=== PATIENT | female | born 1960 | race Two or more races ===

== ENCOUNTER → 2019-09-21 | Outpatient (REF) | payer OTHER, SELFPAY ==
[2019-09-21 11:59] LABS: BASO % 0.7 % (0.0-1.0); EOS % 0.7 % (0.0-3.0); HEMATOCRIT 47.5 % (36.0-47.0); HEMOGLOBIN 15.5 g/dl (12.0-15.5); LYMPH # 3.1 10^3/uL (1.5-5.0); LYMPH % 53.3 % (24.0-44.0); MEAN CORPUSCULAR HGB CONC 32.6 g/dl (32.0-36.5); MEAN CORPUSCULAR VOLUME 91.9 fl (80.0-96.0); MONO # 0.4 10^3/uL (0.0-0.8); MONO % 6.3 % (0.0-5.0); NEUTROPHILS # 2.2 10^3/uL (1.5-8.5); NEUTROPHILS % 38.8 % (36.0-66.0); PLATELET COUNT, AUTOMATED 214 10^3/uL (150-450); RED BLOOD COUNT 5.17 10^6/uL (4.00-5.40); WHITE BLOOD COUNT 5.7 10^3/uL (4.0-10.0)
[2019-09-21 12:55] LABS: ALBUMIN 3.9 GM/DL (3.2-5.2); ALT/SGPT 24 U/L (12-78); BILIRUBIN,TOTAL 2.9 MG/DL (0.2-1.0); BLOOD UREA NITROGEN 18 MG/DL (7-18); CALCIUM LEVEL 9.3 MG/DL (8.5-10.1); CARBON DIOXIDE LEVEL 30 MEQ/L (21-32); CHLORIDE LEVEL 102 MEQ/L (98-107); CHOLESTEROL LEVEL 247 MG/DL (<200); CHOLESTEROL RISK RATIO 4.333 (<5); CREATININE FOR GFR 0.79 MG/DL (0.55-1.30); GLOMERULAR FILTRATION RATE > 60.0 (>51); GLUCOSE, FASTING 95 MG/DL (70-100); HDL CHOLESTEROL 57 MG/DL (>40); LDL CHOLESTEROL 153 MG/DL (<100); NON-HDL-C 190 MG/DL; POTASSIUM SERUM 4.1 MEQ/L (3.5-5.1); SODIUM LEVEL 136 MEQ/L (136-145); TOTAL PROTEIN 8.2 GM/DL (6.4-8.2); TRIGLYCERIDES LEVEL 186 MG/DL (<150)
== END ==
LOC: M PLALAB 08:12
PROVIDERS: ATTEND Family Medicine
DX: I10 Essential (primary) hypertension (principal); Z21 Asymptomatic human immunodeficiency virus [HIV] infection status; Z13.220 Encounter for screening for lipoid disorders

== ENCOUNTER → 2019-09-27 | Outpatient (REF) | payer OTHER, SELFPAY ==
[~2019-09-27] MED LIST: ASPI81TA26 PO; ATEN100T7 PO; SYMT1TAB PO
[2019-09-27 14:03] LABS: APPEARANCE, URINE CLEAR (CLEAR); BACTERIA, URINE AUTO 1+ (NEGATIVE); BILIRUBIN, URINE AUTO NEGATIVE (NEGATIVE); BLOOD, URINE BLOOD NEGATIVE (NEGATIVE); COLOR, URINE YELLOW (YELLOW); GLUCOSE, URINE (UA) AUTO NEGATIVE (NEGATIVE); KETONE, URINE AUTO NEGATIVE (NEGATIVE); LEUKOCYTE ESTERASE, URINE AUTO NEGATIVE (NEGATIVE); MUCUS, URINE SMALL (NEGATIVE); NITRITE, URINE AUTO NEGATIVE (NEGATIVE); PROTEIN, URINE AUTO NEGATIVE (NEGATIVE); RBC, URINE AUTO 1 /HPF (0-3); SPECIFIC GRAVITY URINE AUTO 1.016 (1.002-1.035); SQUAMOUS EPITHELIAL CELL UR AU 0 /HPF (0-6); UROBILINOGEN, URINE AUTO 0.2 mg/dL (0.0-2.0); WBC, URINE AUTO 1 /HPF (0-3)
[2019-09-27 14:23] LABS: ALBUMIN 4.1 GM/DL (3.2-5.2); ALT/SGPT 24 U/L (12-78); BILIRUBIN,TOTAL 5.3 MG/DL (0.2-1.0); BLOOD UREA NITROGEN 19 MG/DL (7-18); CALCIUM LEVEL 9.9 MG/DL (8.5-10.1); CARBON DIOXIDE LEVEL 28 MEQ/L (21-32); CHLORIDE LEVEL 100 MEQ/L (98-107); CREATININE FOR GFR 0.94 MG/DL (0.55-1.30); GLOMERULAR FILTRATION RATE > 60.0 (>51); GLUCOSE, FASTING 106 MG/DL (70-100); HEPATITIS B SURFACE ANTIGEN NEGATIVE (NEGATIVE); HEPATITIS C VIRUS ABY INDEX 0.1 INDEX (<0.8); POTASSIUM SERUM 3.5 MEQ/L (3.5-5.1); SODIUM LEVEL 136 MEQ/L (136-145); TOTAL PROTEIN 8.5 GM/DL (6.4-8.2)
[2019-09-27 14:29] LABS: BILIRUBIN,DIRECT 0.4 MG/DL (0.0-0.2); BILIRUBIN,TOTAL 5.3 MG/DL (0.2-1.0)
[2019-09-27 15:18] LABS: CHLAMYDIA DNA AMPLIFICATION NEGATIVE (NEGATIVE); GC DNA AMPLIFICATION NEGATIVE (NEGATIVE)
[2019-10-04 12:19] LABS: % CD8 Pos Lymph 43.6 % (12.0-35.5); ABS Lymphs 2.4 x10E3/uL (0.7-3.1); ABS Monocytes 0.2 x10E3/uL (0.1-0.9); ABS Neutophils 1.9 x10E3/uL (1.4-7.0); Abs CD4 Helper 960 /uL (359-1519); Abs CD8 Suppres 1046 /uL (109-897); CD4/CD8 Ratio 0.92 (0.92-3.72); Eosinophils 1 % (Not Estab.); G6PD2 5.02 x10E6/uL (3.77-5.28); HCT 43.5 % (34.0-46.6); HEPATITIS A IgG TOTAL Positive (Negative); HEPATITIS B CORE ANTIBODY IGG Negative (Negative); HGB 14.8 g/dL (11.1-15.9); HIV-1 RNA PCR QUANT 2 LC550285 <20 copies/mL (.); HLA B5701-1 Negative (.); Immature Grans 0 % (Not Estab.); Lymphocytes 52 % (Not Estab.); MCH 29.5 pg (26.6-33.0); MCV 87 fL (79-97); Monocytes 5 % (Not Estab.); Neutrophils 42 % (Not Estab.); Platelets 222 x10E3/uL (150-450); RDW 13.1 % (11.7-15.4); WBC 4.6 x10E3/uL (3.4-10.8)
== END ==
LOC: M PLALAB 10:29
PROVIDERS: ATTEND Family Medicine
DX: R17 Unspecified jaundice (principal); Z21 Asymptomatic human immunodeficiency virus [HIV] infection status

== ENCOUNTER → 2019-11-19 | Outpatient (CLI) | payer OTHER ==
[2019-11-19 15:16] LABS: ALBUMIN 3.8 GM/DL (3.2-5.2); ALT/SGPT 27 U/L (12-78); BILIRUBIN,TOTAL 0.4 MG/DL (0.2-1.0); BLOOD UREA NITROGEN 17 MG/DL (7-18); CALCIUM LEVEL 9.3 MG/DL (8.5-10.1); CARBON DIOXIDE LEVEL 32 MEQ/L (21-32); CHLORIDE LEVEL 105 MEQ/L (98-107); CREATININE FOR GFR 0.72 MG/DL (0.55-1.30); GLOMERULAR FILTRATION RATE > 60.0 (>51); GLUCOSE, FASTING 47 MG/DL (70-100); POTASSIUM SERUM 4.7 MEQ/L (3.5-5.1); SODIUM LEVEL 141 MEQ/L (136-145)
== END ==
LOC: M PLALAB 12:00
PROVIDERS: ATTEND Family Medicine
DX: E80.7 Disorder of bilirubin metabolism, unspecified (principal)

== ENCOUNTER → 2019-12-25 | Outpatient (CLI) | payer OTHER, SELFPAY | LOC: M LABSMTC 08:42 | PROVIDERS: ATTEND Anesthesiology | DX: Z01.812 Encounter for preprocedural laboratory examination (principal); Z20.828 Contact with and (suspected) exposure to other viral communicable diseases | CPT/HCPCS: C9803; U0003 ==

== ENCOUNTER 2019-12-30 08:13 | Day surgery (SDC) | payer OTHER ==
[~2019-12-30] VITALS: Ht 165.1 cm; Wt 62.6 kg
[~2019-12-30 08:13] MED LIST changes: +NS 1,000 ML IV ONE
[2019-12-30] MEDS ORDERED: propofoL 500 MG/50 ML VIAL As Ordered ONE (09:58)
[2019-12-30] MEDS ORDERED: LIDOCAINE 2% 100MG/5ML SDV (FOR ANES.) As Ordered ONE (09:58)
--- NOTE | 2019-12-30 10:39 | ROOR ---
Patient Name: Veronica De Oliveira Procedure Date: 12/30/2019 9:54 AM Date of : 1960 Age: 59 Room: [facility] Gender: Female Note Status: Finalized Procedure: Colonoscopy Indications: Hematochezia Providers: Ashutosh Monroy MD Referring MD: Anna Kurtz MD Requesting Provider: Medicines: Monitored Anesthesia Care Complications: No immediate complications. Procedure: Pre-Anesthesia Assessment: - Prior to the procedure, a History and Physical was performed, and patient medications and allergies were reviewed. The patient is competent. The risks and benefits of the procedure and the sedation options and risks were discussed with the patient. All questions were answered and informed consent was obtained. Patient identification and proposed procedure were verified by the physician, the nurse and the anesthesiologist in the procedure room. Mental Status Examination: alert and oriented. Airway Examination: normal oropharyngeal airway and neck mobility. Respiratory Examination: clear to auscultation. CV Examination: normal. Prophylactic Antibiotics: The patient does not require prophylactic antibiotics. Prior Anticoagulants: The patient has taken no previous anticoagulant or antiplatelet agents. ASA Grade Assessment: II - A patient with mild systemic disease. After reviewing the risks and benefits, the patient was deemed in satisfactory condition to undergo the procedure. The anesthesia plan was to use monitored anesthesia care (MAC). Immediately prior to administration of medications, the patient was re-assessed for adequacy to receive sedatives. The heart rate, respiratory rate, oxygen saturations, blood pressure, adequacy of pulmonary ventilation, and response to care were monitored throughout the procedure. The physical status of the patient was re-assessed after the procedure. The Colonoscope was introduced through the anus and advanced to the terminal ileum, with identification of the appendiceal orifice and IC valve. The colonoscopy was performed without difficulty. The patient tolerated the procedure well. The quality of the bowel preparation was good. The terminal ileum, ileocecal valve, appendiceal orifice, and rectum were photographed. Scope insertion time was 3 minutes. Scope withdrawal time was 10 minutes. The total duration of the procedure was 14 minutes. Findings: The perianal and digital rectal examinations were normal. The terminal ileum appeared normal. Two sessile polyps were found in the descending colon and ascending colon. The polyps were 6 to 8 mm in size. These polyps were removed with a cold snare. Resection and retrieval were complete. Verification of patient identification for the specimen was done by the physician and nurse using the patient's name, date and medical record number. Estimated blood loss was minimal. A 20 mm polyp was found in the recto-sigmoid colon. The polyp was sessile. The polyp was removed with a hot snare. Resection and retrieval were complete. To close a defect after polypectomy, one hemostatic clip was successfully placed. There was no bleeding at the end of the procedure. Non-bleeding external and internal hemorrhoids were found during retroflexion. The hemorrhoids were medium-sized. Impression: - The examined portion of the ileum was normal. - Two 6 to 8 mm polyps in the descending colon and in the ascending colon, removed with a cold snare. Resected and retrieved. - One 20 mm polyp at the recto-sigmoid colon, removed with a hot snare. Resected and retrieved. Clip was placed. - Non-bleeding external and internal hemorrhoids. Recommendation: - Patient has a contact number available for emergencies. The signs and symptoms of potential delayed complications were discussed with the patient. Return to normal activities tomorrow. Written discharge instructions were provided to the patient. - High fiber diet. - Continue present medications. - Await pathology results. - Repeat colonoscopy in 3 years for surveillance based on pathology results. - Telephone GI clinic for pathology results in 2 weeks. - Return to primary care physician. Ashutosh Monroy MD Ashutosh Monroy MD 12/30/2019 10:38:56 AM Electronically signed by Ashutosh Monroy MD Number of Addenda: 0 Note Initiated On: 12/30/2019 9:54 AM Estimated Blood Loss: Estimated blood loss was minimal.
[2019-12-30 11:04] VITALS: BP 136/85
== END 2019-12-30 11:04 | disposition home or self-care (01) ==
LOC: M OPP 08:13
PROVIDERS: ATTEND Internal Medicine Gastroenterology
DX: K63.5 Polyp of colon (principal); K64.8 Other hemorrhoids; K92.1 Melena; B20 Human immunodeficiency virus [HIV] disease; Z79.82 Long term (current) use of aspirin; Z79.899 Other long term (current) drug therapy

== ENCOUNTER → 2020-02-11 | Outpatient (REF) | payer OTHER ==
[~2020-02-11] MED LIST changes: -NS 1,000 ML IV ONE
== END ==
LOC: M SFHCWAGY 13:24
PROVIDERS: ATTEND Obstetrics & Gynecology
DX: Z12.4 Encounter for screening for malignant neoplasm of cervix (principal); N88.8 Other specified noninflammatory disorders of cervix uteri

== ENCOUNTER → 2020-02-11 | Outpatient (CLI) | payer OTHER ==
--- NOTE | 2020-02-11 14:30 | REPMRS ---
Patient History The patient states she has not had a clinical breast exam in over a year. Patient is postmenopausal. No known family history of cancer. No Hormone Replacement Therapy 3D TOMOSYNTHESIS WAS PERFORMED. The [facility] lifetime risk for breast cancer is 9.0%. Volpara breast density b. Digital Woman Screen Mammo: February 11, 2020 - Exam #: [id number] Bilateral CC and MLO view(s) were taken. Technologist: Kasandra Simms, RT FINDINGS: There are scattered fibroglandular densities. There is a mild amount of residual fibroglandular tissue which is fairly symmetric. There is no dominant mass, architectural distortion, or clustered microcalcification suggestive of malignancy. Assessment: BI-RADS/ACR category 1 mammogram. Negative Mammogram. Recommendation Routine screening mammogram in 1 year (for women over age 40). This mammogram was interpreted with the aid of an FDA-approved computer-aided dectection system. Electronically Signed By: Gopi Beck MD 02/11/20 [id number]
== END ==
LOC: M WHC 08:57
PROVIDERS: ATTEND Obstetrics & Gynecology
DX: Z12.31 Encounter for screening mammogram for malignant neoplasm of breast (principal)

== ENCOUNTER → 2020-06-05 | Outpatient (REF) | payer OTHER ==
[2020-06-05 13:36] LABS: ALBUMIN 3.9 GM/DL (3.2-5.2); ALT/SGPT 22 U/L (12-78); BILIRUBIN,TOTAL 0.6 MG/DL (0.2-1.0); BLOOD UREA NITROGEN 20 MG/DL (7-18); CALCIUM LEVEL 9.6 MG/DL (8.5-10.1); CARBON DIOXIDE LEVEL 34 MEQ/L (21-32); CHLORIDE LEVEL 103 MEQ/L (98-107); CREATININE FOR GFR 0.79 MG/DL (0.55-1.30); GLOMERULAR FILTRATION RATE > 60.0 (>51); GLUCOSE, FASTING 98 MG/DL (70-100); POTASSIUM SERUM 3.5 MEQ/L (3.5-5.1); SODIUM LEVEL 140 MEQ/L (136-145); TOTAL PROTEIN 7.7 GM/DL (6.4-8.2)
[2020-06-07 01:07] LABS: %CD4 Pos Lymphs 41.4 % (30.8-58.5); ABS Lymphs 2.2 x10E3/uL (0.7-3.1); ABS Monocytes 0.3 x10E3/uL (0.1-0.9); ABS Neutophils 2.1 x10E3/uL (1.4-7.0); Abs CD4 Helper 911 /uL (359-1519); Abs CD8 Suppres 902 /uL (109-897); CD4/CD8 Ratio 1.01 (0.92-3.72); Eosinophils 0 % (Not Estab.); HCT 45.3 % (34.0-46.6); HGB 15.1 g/dL (11.1-15.9); HIV-1 RNA PCR QUANT 2 LC550285 <20 copies/mL (.); Immature Grans 0 % (Not Estab.); Lymphocytes 48 % (Not Estab.); MCHC 33.3 g/dL (31.5-35.7); MCV 90 fL (79-97); Monocytes 6 % (Not Estab.); Neutrophils 45 % (Not Estab.); Platelets 173 x10E3/uL (150-450); RBC 5.03 x10E6/uL (3.77-5.28); WBC 4.7 x10E3/uL (3.4-10.8)
== END ==
LOC: M SFHCPLAZ 10:13
PROVIDERS: ATTEND Internal Medicine Infectious Disease
DX: B20 Human immunodeficiency virus [HIV] disease (principal)

== ENCOUNTER → 2020-10-17 | Outpatient (CLI) | payer OTHER ==
[2020-10-17 13:59] LABS: BASO % 0.8 % (0.0-1.0); EOS # 0.1 10^3/uL (0.0-0.5); HEMATOCRIT 48.5 % (36.0-47.0); HEMOGLOBIN 16.1 g/dl (12.0-15.5); LYMPH # 2.5 10^3/uL (1.5-5.0); LYMPH % 48.9 % (24.0-44.0); MEAN CORPUSCULAR HEMOGLOBIN 30.6 pg (27.0-33.0); MEAN CORPUSCULAR HGB CONC 33.2 g/dl (32.0-36.5); MONO # 0.4 10^3/uL (0.0-0.8); MONO % 7.5 % (2.0-8.0); NEUTROPHILS # 2.1 10^3/uL (1.5-8.5); NEUTROPHILS % 41.6 % (36.0-66.0); PLATELET COUNT, AUTOMATED 174 10^3/uL (150-450); RED BLOOD COUNT 5.27 10^6/uL (4.00-5.40); WHITE BLOOD COUNT 5.1 10^3/uL (4.0-10.0)
[2020-10-17 14:30] LABS: ALBUMIN 4.2 GM/DL (3.2-5.2); ALT/SGPT 25 U/L (12-78); BILIRUBIN,TOTAL 0.5 MG/DL (0.2-1.0); BLOOD UREA NITROGEN 23 MG/DL (7-18); CALCIUM LEVEL 9.9 MG/DL (8.5-10.1); CARBON DIOXIDE LEVEL 31 MEQ/L (21-32); CHLORIDE LEVEL 103 MEQ/L (98-107); CREATININE FOR GFR 0.73 MG/DL (0.55-1.30); GLOMERULAR FILTRATION RATE > 60.0 (>51); GLUCOSE, FASTING 87 MG/DL (70-100); POTASSIUM SERUM 3.8 MEQ/L (3.5-5.1); SODIUM LEVEL 140 MEQ/L (136-145); TOTAL PROTEIN 8.3 GM/DL (6.4-8.2)
== END ==
LOC: M PLALAB 11:38
PROVIDERS: ATTEND Internal Medicine Infectious Disease
DX: B20 Human immunodeficiency virus [HIV] disease (principal)

== ENCOUNTER → 2020-11-02 | Outpatient (CLI) | payer OTHER | LOC: M LABSMTC 11:54 | PROVIDERS: ATTEND Anesthesiology | DX: Z01.812 Encounter for preprocedural laboratory examination (principal); Z20.822 Contact with and (suspected) exposure to COVID-19 ==

== ENCOUNTER 2020-11-07 10:03 | Observation (INO) | payer OTHER ==
[~2020-11-07] VITALS: Ht 165.1 cm; Wt 58.6 kg
[~2020-11-07 10:03] MED LIST changes: +LIDOCAINE 2% 100MG/5ML SDV (FOR ANES.) As Ordered ONE; +MIDAZOLAM INJ 2MG/2ML VIAL (J2250 PER 1MG) As Ordered ONE; +ONDANSETRON 4MG/2ML VIAL As Ordered ONE; +ROCURONIUM BROMIDE 50 MG/5 ML VIAL As Ordered ONE; +SYMTUZA PO SCH; +dexameTHASONE 4 MG/ML 1ML VIAL (J1100 PER 1MG) As Ordered ONE; +fentaNYL 250 MCG/5 ML INJECTION (J3010) As Ordered ONE; +propofoL 200 MG/20 ML VIAL As Ordered ONE
[2020-11-07] MEDS ORDERED: ceFAZolin SOD 1 GM in D5W MINI-BAG PLUS 50 ML IV ONE (11:10)
[2020-11-07] MEDS ORDERED: BUPIVACAINE LIPOSOME/PF 1.3% 20ML VIAL (13.3MG/ML)(EXPAREL)(C9290 PER1MG) As Ordered ONE (11:10)
[2020-11-07] MEDS ORDERED: GENTAMICIN SULF 80MG/2ML VIAL As Ordered ONE (11:10)
[2020-11-07] MEDS ORDERED: SUGAMMADEX SODIUM 500 MG/5 ML VIAL (BRIDION) As Ordered ONE (13:27)
[2020-11-07] MEDS ORDERED: ePHEDrine SULFATE 25 MG/5 ML(5MG/ML) SYRINGE As Ordered ONE (13:39)
[2020-11-07] MEDS ORDERED: HYDROmorphone HCL 2 MG/ML 1ML VIAL (J1170) As Ordered ONE (13:50)
--- NOTE | 2020-11-07 14:54 | POST-OPPD ---
Postoperative Procedure Note Date Of Procedure: Nov 07, 2020 PREOPERATIVE DIAGNOSIS: Bilateral breast hypertrophy. Back pain. POSTOPERATIVE DIAGNOSIS: same PROCEDURE: Bilateral breast reduction SURGEON: Dr Maza GEOTHERMAL SHEET METAL WORKER: None ANESTHESIA: general ESTIMATED BLOOD LOSS: 75 cc FINDINGS: Right side larger than left SPECIMENS: Right breast 386 gm, Left breast 258 gm COMPLICATIONS: none REPLACED: none DRAINS: 10 mm FLORES x 2 POSTOPERATIVE CONDITION: stable PANCHITO MAZA DO Nov 07, 2020 14:54
[2020-11-07] MEDS ORDERED: ONDANSETRON 4MG/2ML VIAL IV PRN ×2 (14:55→15:05)
[2020-11-07] MEDS ORDERED: PERCOCET 5MG/325MG TAB PO PRN (14:55)
[2020-11-07] MEDS ORDERED: ACETAMINOPHEN TAB 650MG DOSE (2X325MG) PO PRN (14:55)
--- NOTE | 2020-11-07 14:55 | ROOPDOC ---
[facility], [place] Report Of Operation Report of Operation DATE OF PROCEDURE: 11/07/20 PREOPERATIVE DIAGNOSIS: Bilateral breast hypertrophy. Back pain. POSTOPERATIVE DIAGNOSIS: same PROCEDURE: Bilateral breast reduction SURGEON: Dr Maza NIGHT WAREHOUSE SELECTOR: None ANESTHESIA: general ESTIMATED BLOOD LOSS: 75 cc FINDINGS: Right side larger than left SPECIMENS: Right breast 386 gm, Left breast 258 gm COMPLICATIONS: none REPLACED: none DRAINS: 10 mm FLORES x 2 POSTOPERATIVE CONDITION: stable DESCRIPTION OF PROCEDURE: This is a 60-year-old female who upper back and neck pain worsened by large and asymmetric breasts. Right side markedly larger than left. she is scheduled for bilateral breast reduction. Risks, benefits, and alternatives were discussed with the patient in detail, and she is ready to proceed. The day of surgery, she was marked in the upright position and informed consent was obtained. She measures 30cm from sternal notch to nipple on the Right and 27 cm on the left, IMF at 20 cm bilaterally. She was brought into the operating room and placed in the supine position. Preoperative antibiotics and 5000 units heparin subcutaneous were given. Sequential pneumatic stocking were placed on the lower calves. General anesthesia was induced. She was prepped and draped in the usual sterile fashion. We started our procedure on the right side. Her nipple areolar complex was outlined 42 mm in diameter, and the patient was marked according superior medial pedicle. We started our incision by scoring the nipple areolar complex area, and then dissection was continued until the inferior lateral portion of the breast was resected. Hemostasis was obtained using electrocautery. The pedicle was de- epithelialized using Oconnor scissors, good perfusion to the nipple at all times. Wound was irrigated with Ancef solution. We used Exparel 6 cc for local anesthesia to infiltrate in the Pectoralis muscle as well as the breast tissue. [place] Tiseal coagulation agent applied. Than, pedicle was turned superior to it s new location at 20 cm from sternal notch. The mound was re-created using conforming 0 Vicryl sutures. Pillars were closed with interrupted 3-0 Monocryl sutures. The vertical limb was 7 cm. Excess tissue inferiorly was measured and resected, creating the horizontal scar. Nipple area complex was brought into view through the new opening and sutured in place with 3-0 and 4-0 Monocryl sutures and a 5-0 plain. A 10 mm Marcello-Lewis drain was placed through the lateral portion of the horizontal incision. Then we turned our attention to the left side. Her nipple areolar complex was outlined 42 mm in diameter, and the patient was marked according superior medial pedicle. We started our incision by scoring the nipple areolar complex area, and then dissection was continued until the inferior lateral portion of the breast was resected. Hemostasis was obtained using electrocautery. The pedicle was de- epithelialized using Oconnor scissors, good perfusion to the nipple at all times. Wound was irrigated with Ancef solution. We used Exparel 6 cc for local anesthesia to infiltrate in the Pectoralis muscle as well as the breast tissue. [place] Tiseal coagulation agent applied. Than, pedicle was turned superior to its new location at 20 cm from sternal notch. The mound was re-created using conforming 0 Vicryl sutures. Pillars were closed with interrupted 3-0 Monocryl sutures. The vertical limb was 7 cm. Excess tissue inferiorly was measured and resected, creating the horizontal scar. Nipple area complex was brought into view through the new opening and sutured in place with 3-0 and 4-0 Monocryl sutures and a 5-0 plain. A 10 mm Marcello-Lewis drain was placed through the lateral portion of the horizontal incision. Remaining Exparel injected in the horizontal incision. Total Exparel use 20 cc. Resected tissue sent to pathology in two specimens right and left breast tissue. Right breast 386 grams, left breast 258 grams. Dressings were applied to vertical and horizontal incision: Prinio strips and Dermabond. Nipples areolar complex: Xeroform and a bulky dressing with a surgical bra. Patient was extubated in the operating room without difficulty and was t ransferred to the recovery room in stable condition. . PANCHITO MAZA DO Nov 07, 2020 14:55
[2020-11-07] MEDS ORDERED: oxyCODONE 5MG TAB PO PRN (15:05)
[2020-11-07] MEDS ORDERED: fentaNYL 100 MCG/2 ML INJECTION (J3010) IV PRN (15:05)
[2020-11-07] MEDS ORDERED: LR 1,000 ML IV SCH (15:05)
[2020-11-07] MEDS: HYDROMORPHONE HCL 0.5 MG/ 0.5 ML SYRINGE (J1170 PER 1) IV PRN ×4 (15:09→15:25)
[2020-11-07 16:00] VITALS: BP 120/70
[2020-11-07] MEDS: CHLORTHALIDONE 25 MG TAB PO SCH (16:00)
[2020-11-07 16:30] VITALS: BP 121/80
[2020-11-07] MEDS: atenoloL 50 MG TAB PO SCH (16:50)
[2020-11-07] MEDS: LR 1,000 ML IV SCH ×2 (16:54→22:33)
[2020-11-07 17:30] VITALS: BP 120/89
[2020-11-07 18:30] VITALS: BP 127/97
[2020-11-07 22:00] VITALS: BP 130/79
[2020-11-07] MEDS: KETOROLAC TROMETHAMINE 10 MG TAB PO PRN (22:01)
[2020-11-08 02:00] VITALS: BP 128/78
[2020-11-08 06:00] VITALS: BP 125/75
[2020-11-08 08:00] VITALS: BP 123/74
[2020-11-08] MEDS: KETOROLAC TROMETHAMINE 10 MG TAB PO PRN (08:01)
[2020-11-08 08:02] VITALS: BP 123/74
[2020-11-08] MEDS: CHLORTHALIDONE 25 MG TAB PO SCH (08:02)
[2020-11-08] MEDS: atenoloL 50 MG TAB PO SCH (08:02)
--- NOTE | 2020-11-08 08:55 | IPNPDOC ---
Subjective General Date Seen: Nov 08, 2020 Subject Chief Complaint/History The patient is a 60-year-old female admitted with a reason for visit of Bilateral Breast Hypertrophy, Pain Thoracic Spine. Patient status post bilateral breast reduction postop day 1. She is feeling well today, ambulating normally to the bathroom, tolerating diet, pain controlled with p.o. medications. Current Medications Current Medications Current Medications Medications (Trade) Dose Ordered Sig/Cornel Route PRN Reason Start Time Stop Time Status Last Admin Dose Admin Acetaminophen (Tylenol Tab) 650 mg Q6H PRN PO MILD PAIN (PS 1-4) 11/07/20 14:55 Atenolol (Tenormin) 100 mg DAILY PO 11/07/20 09:00 11/08/20 08:02 Chlorthalidone (Hygroton) 25 mg DAILY PO 11/07/20 09:00 11/08/20 08:02 Fentanyl Citrate (Sublimaze) 25 mcg Q5MP PRN IV PAIN LEVEL 8-10 11/07/20 15:05 11/07/20 17:05 DC Hydromorphone HCl (Dilaudid) 0.2 mg Q5MP PRN IV PAIN LEVEL 5-7 11/07/20 15:05 11/07/20 15:28 DC 11/07/20 15:25 Ketorolac Tromethamine (ToRADol) 10 mg Q6HP PRN PO MODERATE PAIN (PS 5-7) 11/07/20 14:55 11/12/20 14:54 11/08/20 08:01 Lactated Ringer's 1,000 ml @ 75 mls/hr [id number] IV 11/07/20 14:55 11/07/20 16:54 Lactated Ringer's 1,000 ml @ 100 mls/hr Q10H IV 11/07/20 15:05 11/07/20 17:05 DC Non-Formulary Medication (atenolol-chlorthalidone 100-25 mg) 1 tab DAILY PO 11/08/20 09:00 UNV Non-Formulary Medication (symtuza 148-665-450-10 mg) 1 tabs DAILY PO 11/08/20 09:00 UNV Ondansetron HCl (ZOFRAN INJection) 4 mg Q4H PRN IV NAUSEA OR VOMITING 11/07/20 14:55 11/07/20 19:07 Ondansetron HCl (ZOFRAN INJection) 4 mg Q4HP PRN IV NAUSEA OR VOMITING 11/07/20 15:05 11/07/20 17:05 DC Oxycodone HCl (Roxicodone, Oxyir) 5 mg ASDIRECTED PRN PO PAIN LEVEL 1-4 11/07/20 15:05 11/07/20 17:05 DC Oxycodone/ Acetaminophen (Percocet 5mg/ 325mg Tablet) 2 tab Q4HP PRN PO PAIN LEVEL 8-10 11/07/20 14:55 11/07/20 18:54 Patient Own Medication (Patient'S Own Med) SYMTUZA 800MG/ 150... DAILY PO 11/07/20 09:00 Cancel Patient Own Medication (Patient'S Own Med) SYMTUZA 800MG/ 150... DAILY PO 11/08/20 09:00 UNV Allergies Coded Allergies: No Known Allergies (Unverified , 12/23/19) Objective Physical Examination Examination GENERAL APPEARANCE:Patient seen, laying in bed, awake, alert, and oriented. Comfortable, in no acute distress. SKIN: Warm and moist. BREAST: Right and left soft, non-tender incisions intact. FLORES drains: L35/R45cc/24 hr. NAC: Viable, warm, symmetrical, mild post-op ecchymosis, no expanding hematoma. HEENT: Normocephalic, atraumatic. [place] palpebral conjunctiva, anicteric sclerae. Lips and mucosa appear moist. NECK: Supple, no thyromegaly. No obvious jugular venous distention. LUNGS: Clear to auscultation bilaterally. No wheezing appreciated. HEART: No chest wall abnormalities. Regular rate and rhythm with no murmurs appreciated. ABDOMEN: Abdomen is soft, non-tender, non-distended. EXTREMITIES: No edema identified. No calf tenderness. Vital Signs Vital Signs Date Time Temp Pulse Resp B/P (MAP) Pulse Ox O2 Delivery O2 Flow Rate FiO2 11/08/20 08:02 67 123/74 11/08/20 08:00 16 95 Room Air 11/08/20 06:00 97.7 11/07/20 15:35 2.0 I&Os I&O- Last 24 Hours up to 6 AM 11/08/20 06:00 Intake Total 1700 ml Output Total 155 ml Balance 1545 ml Impression Bilateral breast reduction postop day 1. Stable for discharge. Instructions given to the patient. Dressings changed, continue monitoring FLORES drains daily. Follow-up with plastic surgery after discharge. Plan / VTE VTE Prophylaxis Ordered?: Yes PANCHITO MAZA DO Nov 08, 2020 08:55
[2020-11-08] MEDS ORDERED: ATENOLOL CHLORTHALIDONE PO SCH (09:00)
[2020-11-08] MEDS ORDERED: SYMTUZA PO SCH ×2 (09:00)
[2020-11-08 10:00] VITALS: BP 120/73
[2020-11-08] MEDS ORDERED: PERCOCET PO (12:09)
== END 2020-11-08 14:15 | disposition home or self-care (01) ==
LOC: M SDC 10:03 → M ED INP 10:04 → M MS5PR 15:30
PROVIDERS: ADMIT Plastic Surgery Surgery of the Hand; ATTEND Plastic Surgery Surgery of the Hand
DX: N62 Hypertrophy of breast (principal); M54.6 Pain in thoracic spine; K21.9 Gastro-esophageal reflux disease without esophagitis; I10 Essential (primary) hypertension; Z79.899 Other long term (current) drug therapy
CPT/HCPCS: 19318; 88305; 96374; C9290; J0690; J1100; J1170; J1580; J2250; J2405; J3010

== ENCOUNTER 2021-07-11 10:45 | Outpatient (RCR) | payer OTHER ==
[~2021-07-11 10:45] MED LIST changes: -LIDOCAINE 2% 100MG/5ML SDV (FOR ANES.) As Ordered ONE; -MIDAZOLAM INJ 2MG/2ML VIAL (J2250 PER 1MG) As Ordered ONE; -ONDANSETRON 4MG/2ML VIAL As Ordered ONE; +PERCOCET PO; -ROCURONIUM BROMIDE 50 MG/5 ML VIAL As Ordered ONE; -SYMTUZA PO SCH; -dexameTHASONE 4 MG/ML 1ML VIAL (J1100 PER 1MG) As Ordered ONE; -fentaNYL 250 MCG/5 ML INJECTION (J3010) As Ordered ONE; -propofoL 200 MG/20 ML VIAL As Ordered ONE
== END 2021-07-21 ==
LOC: M PT 10:45
PROVIDERS: ATTEND Family Medicine
DX: M54.6 Pain in thoracic spine (principal)

== ENCOUNTER 2021-08-15 10:45 | Outpatient (RCR) | payer OTHER | END 2021-08-21 | LOC: M PT 10:45 | PROVIDERS: ATTEND Family Medicine | DX: M54.6 Pain in thoracic spine (principal) ==

== ENCOUNTER → 2021-10-19 | Outpatient (CLI) | payer OTHER ==
[2021-10-19 13:07] LABS: ALBUMIN 3.9 GM/DL (3.2-5.2); ALT/SGPT 21 U/L (12-78); BILIRUBIN,TOTAL 0.6 MG/DL (0.2-1.0); BLOOD UREA NITROGEN 18 MG/DL (7-18); CALCIUM LEVEL 9.2 MG/DL (8.5-10.1); CARBON DIOXIDE LEVEL 34 MEQ/L (21-32); CHLORIDE LEVEL 105 MEQ/L (98-107); CREATININE FOR GFR 0.71 MG/DL (0.55-1.30); GLOMERULAR FILTRATION RATE > 60.0 (>51); GLUCOSE, FASTING 85 MG/DL (70-100); POTASSIUM SERUM 3.8 MEQ/L (3.5-5.1); SODIUM LEVEL 139 MEQ/L (136-145); TOTAL PROTEIN 8.1 GM/DL (6.4-8.2)
[2021-10-22 16:08] LABS: % CD8 Pos Lymph 40.6 % (12.0-35.5); %CD4 Pos Lymphs 43.1 % (30.8-58.5); ABS Lymphs 2.3 x10E3/uL (0.7-3.1); ABS Monocytes 0.3 x10E3/uL (0.1-0.9); ABS Neutophils 2.8 x10E3/uL (1.4-7.0); Abs CD4 Helper 991 /uL (359-1519); Abs CD8 Suppres 934 /uL (109-897); CD4/CD8 Ratio 1.06 (0.92-3.72); Eosinophils 1 % (Not Estab.); HCT 46.6 % (34.0-46.6); HGB 15.4 g/dL (11.1-15.9); HIV-1 RNA PCR QUANT 1 LC162545 50 copies/mL (.); HIV-1 RNA PCR QUANT 2 LC162545 1.699 (.); Immature Grans 0 % (Not Estab.); Lymphocytes 42 % (Not Estab.); MCH 29.2 pg (26.6-33.0); MCV 88 fL (79-97); Monocytes 6 % (Not Estab.); Neutrophils 50 % (Not Estab.); Platelets 194 x10E3/uL (150-450); RBC 5.28 x10E6/uL (3.77-5.28); RDW 12.9 % (11.7-15.4); WBC 5.5 x10E3/uL (3.4-10.8)
== END ==
LOC: M PLALAB 10:10
PROVIDERS: ATTEND Internal Medicine Infectious Disease
DX: B20 Human immunodeficiency virus [HIV] disease (principal)

== ENCOUNTER → 2021-10-19 | Outpatient (CLI) | payer OTHER ==
[2021-10-19 13:04] LABS: CHOLESTEROL RISK RATIO 3.291 (<5)
[2021-10-19 14:37] LABS: HEMOGLOBIN A1c 5.3 %
== END ==
LOC: M PLALAB 10:07
PROVIDERS: ATTEND Internal Medicine Hematology
DX: E78.5 Hyperlipidemia, unspecified (principal)

== ENCOUNTER → 2021-11-19 | Outpatient (CLI) | payer OTHER | LOC: M WHC 11:53 | PROVIDERS: ATTEND Obstetrics & Gynecology | DX: Z12.31 Encounter for screening mammogram for malignant neoplasm of breast (principal) ==